=== PATIENT | male | born 1925 | race Caucasian/White ===

== ENCOUNTER → 2016-10-20 | Outpatient (CLI) | payer MEDICARE, BC, OTHER ==
[~2016-10-20] MED LIST: ACCUPRIL40 MG PO; ACETAMINOPHEN-1 EAC1 PO; ACETAMINOPHEN325 M1 PO; ADULT LOW DOSE81 MG PO; ALBUTEROL2.5 MG/0.1 INH; ALDACTONE25 MG PO; ALEVE220 MG PO; AMBIEN 10 MG TA10 MG PO; ASPIRIN EC81 M1 PO; AUGMENTIN 875875 MG PO; B12INJ PO; BUTRANS1 EAC2 TD; BUTRANS1 EACH TD; BYSTOLIC10 MG PO; CALCIUM 500+D1 EAC2 PO; CALCIUM 600 +1 EA11 PO; CARVEDILOL PO; CARVEDILOL25 MG PO; DOLOPHINE HCL5 MG PO; EPLERENONE25 MG PO; FINASTERIDE5 MG PO; FISH OIL 1,001000 M2 PO; FLOMAX PO; HYDROCODONE-AP1 EAC6 PO; INSPRA25 MG PO; INVANZ 1GM/NS 101 GM IV; LACTULOSE10 GM/152; METHADONE HCL5 MG PO; MIRALAX255 GM PO; MOM PO; NAPROSYN500 MG PO; NEURONTIN 400400 M1 PO; OCUVITE TABLET1 EAC1 PO; OMEPRAZOLE40 MG PO; OS-CAL 500+D C1 EACH PO; PANTOPRAZOLE SO40 M1 PO; PRILOSEC40 MG PO; TAMSULOSIN HCL0.4 MG PO; TRAMADOL 50 MG50 MG PO; VITAMIN B-12500 MCG PO; VITAMIN D1000 UNI1
--- NOTE | ~2016-10-20 | P ---
[facility] [place] [address] PROCEDURE REPORT Name: BALJIT UGARTE Room #: REG [facility]#: [id number] Admission: 10/20/16 Attend Phys: Moreno Harding Discharge: Date of : [birth year] Report #: [id number] THIS REPORT FOR: //name// CC: Moreno Lin MD DATE OF SERVICE: 10/20/2016 PROCEDURE PERFORMED: Upper endoscopy. HISTORY OF PRESENT ILLNESS: The patient is an 89-year-old male with a history of upper GI bleed and duodenal stricture who underwent an upper endoscopy by myself on 08/09/2016. 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 Since that time, he has been on Protonix as well as Carafate. At this time, he denies any nausea or vomiting. No abdominal bloating. No early satiety. No further bleeding. Plan is for repeat upper endoscopy. DESCRIPTION OF PROCEDURE: The risks and benefits of the procedure were explained to the patient, those risks including, but not limited to bleeding, perforation, the risk of sedation. He understood these risks and gave informed consent. Sedation was given using propofol per anesthesia. Next, using a standard [employer] upper endoscope, the scope was placed in the patient's mouth and advanced under direct vision through the esophagus, stomach and into the second portion of the duodenum. The esophagus was normal throughout. The GE junction was normal. There was no evidence of any further esophagitis. Overall, the gastric mucosa was normal. No erosions or ulcerations. No evidence of food residual or fluid in the stomach. The pylorus was normal and patent. The duodenal bulb was normal. The previous ulcer is well healed. There was a mild narrowing in the first portion of the duodenum once again noted; however, the scope did pass through this area easily and again the patient is not complaining of any nausea, vomiting, or early satiety. The second portion of the duodenum was normal. The scope was then withdrawn and the procedure terminated. The patient tolerated the procedure well. IMPRESSION: 1. Mild duodenal stricture. 2. Previous esophagitis and duodenal bulb ulcer, all healed. RECOMMENDATIONS: We would continue current regimen of Protonix on a daily basis as well as Carafate. [address] [address] PROCEDURE REPORT Name: BALJIT UGARTE ALLEN Room #: REG CLI Jessica#: [id number] Admission: 10/20/16 Attend Phys: Moreno Harding Discharge: Date of : [birth year] Report #: [id number] Thank you for allowing me to participate in his care. <ELECTRONICALLY SIGNED> By: Moreno Walton MD 10/25/16 [id number] Moreno Walton MD /ever
== END | disposition home or self-care (01) ==
LOC: GI 08:38
DX: K31.5 Obstruction of duodenum (principal)
CPT/HCPCS: 62110; 62900